=== PATIENT | male | born 1980 | race Hispanic/Latino ===

== ENCOUNTER 2024-11-29 08:59 | Emergency (ER) | payer OTHER, SELFPAY ==
[2024-11-29 09:22] VITALS: BP 122/84
[2024-11-29 09:28] VITALS: BP 122/84
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
[2024-11-29 09:42] VITALS: BMI 29.0
[2024-11-29 10:00] VITALS: BP 116/72
[2024-11-29] MEDS: TYLENOL 1000 MG PO (10:34)
[2024-11-29 10:39] VITALS: BP 112/77
[2024-11-29 11:00] VITALS: BP 111/70
[2024-11-29] MEDS: MOTRIN 600 MG PO (11:35)
[2024-11-29 12:00] VITALS: BP 115/71
== END 2024-11-29 12:25 | disposition home or self-care (01) ==
LOC: EMR 08:59
PROVIDERS: EMERGENCY PHYSICIAN Emergency Medicine
DX: S01.01XA Laceration without foreign body of scalp, initial encounter (principal); S00.11XA Contusion of right eyelid and periocular area, initial encounter; H11.31 Conjunctival hemorrhage, right eye; M54.2 Cervicalgia; Y04.2XXA Assault by strike against or bumped into by another person, initial encounter; W22.09XA Striking against other stationary object, initial encounter; W06.XXXA Fall from bed, initial encounter; Y92.148 Other place in prison as the place of occurrence of the external cause
CPT/HCPCS: 12001; 99284; 70450; 70486; 72125